=== PATIENT | male | born 1985 | race Caucasian/White ===

== ENCOUNTER 2017-07-24 11:26 | Inpatient (IN) | payer OTHER ==
[2017-07-24 12:09] VITALS: BMI 29.4
--- NOTE | 2017-07-24 16:43 | HP ---
CIWA Score - CIWA Score Nausea/Vomitin-Int. Nausea w/Dry Heave Muscle Tremors: 3 Anxiety: 3 Agitation: 4-Moderately Restless Paroxysmal Sweats: 3 Orientation: 0-Oriented Tacttile Disturbances: 1-Very Mild Itch/Numbness Auditory Disturbances: 0-None Visual Disturbances: 0-None Headache: 1-Very Mild CIWA-Ar Total Score: 19 Admission ROS BHS - HPI Chief Complaint: benzodiazepine withdrawal sx Allergies/Adverse Reactions: Allergies Allergy/AdvReac Type Severity Reaction Status Date / Time SEAFOOD Allergy Severe Hives Uncoded 07/24/17 12:37 NKDA Allergy Uncoded 07/24/17 12:37 History of Present Illness: 32 yo m with h/o opioid use disorder on OTP [place] 170mg daily, ldm today requesting inpatient detoxification from benzodiazepines because of withdrawal sx. no h/o seizures, dts. no other illict drug use reported, nicotien dependnece 1PPD Exam Limitations: No Limitations - Ebola screening Have you traveled outside of the country in the last 21 days: No (N) Have you had contact with anyone from an Ebola affected area: No Have you been sick,other than usual withdrawal symptoms: No Do you have a fever: No - Review of Systems Constitutional: Chills, Diaphoresis, Night Sweats, Changes in sleep, Weakness EENT: reports: No Symptoms Reported Respiratory: reports: No Symptoms reported Cardiac: reports: No Symptoms Reported GI: reports: Diarrhea, Nausea, Poor Fluid Intake, Vomiting, Indigestion, Abdominal cramping : reports: No Symptoms Reported Musculoskeletal: reports: No Symptoms Reported Integumentary: reports: Flushing, Sweating Neuro: reports: Headache, Numbness, Paresthesia, Tremors, Weakness Endocrine: reports: No Symptoms Reported Hematology: reports: No Symptoms Reported Psychiatric: reports: Judgement Intact, Mood/Affect Appropiate, Orientated x3, Anxious, Depressed Other Systems: Reviewed and Negative Patient History - Patient Medical History Hx Anemia: No Hx Asthma: No Hx Chronic Obstructive Pulmonary Disease (COPD): No Hx Cancer: No Hx Cardiac Disorders: No Hx Congestive Heart Failure: No Hx Hypertension: No Hx Hypercholesterolemia: No Hx Pacemaker: No HX Cerebrovascular Accident: No Hx Seizures: No Hx Dementia: No Hx Diabetes: No Hx Gastrointestinal Disorders: No Hx Liver Disease: No Hx Genitourinary Disorders: No Hx Sexually Transmitted Disorders: No Hx Renal Disease (ESRD): No Hx Thyroid Disease: No Hx Human Immunodeficiency Virus (HIV): No Hx Hepatitis C: No Hx Depression: Yes (anxiety, insomnia) Hx Suicide Attempt: No Hx Bipolar Disorder: No Hx Schizophrenia: No - Patient Surgical History Past Surgical History: Yes Hx Neurologic Surgery: No Hx Cataract Extraction: No Hx Cardiac Surgery: No Hx Lung Surgery: No Hx Breast Surgery: Yes (bilateral gynomastia in 2014) Hx Breast Biopsy: No Hx Abdominal Surgery: No Hx Appendectomy: No Hx Cholecystectomy: No Hx Genitourinary Surgery: No Hx Section: Yes (fx, right ankle in 2009) Hx Orthopedic Surgery: No Anesthesia Reaction: No - PPD History Previous Implant?: Yes Documented Results: Negative w/o proof Implanted On Prior R Admission?: No PPD to be Administered?: Yes - Reproductive History Patient is a Female of Child Bearing Age (11 -55 yrs old): No Patient : No - Smoking Cessation Smoking history: Current every day smoker Have you smoked in the past 12 months: Yes Aproximately how many cigarettes per day: 10 Hx Chewing Tobacco Use: No Initiated information on smoking cessation: Yes 'Breaking Loose' booklet given: 07/24/17 - Substance & Tx. History Hx Alcohol Use: No Hx Substance Use: Yes Substance Use Type: Heroin, Opiates, Prescribed, Tranquilizers Hx Substance Use Treatment: Yes (MMTP) - Substances Abused Xanax Route: Oral Frequency: Daily Amount used: 5-10 tabs. (2 mg.) Age of first use: 30 Date of Last Use: 07/23/17 Family Disease History - Family Disease History Family History: Denies Admission Physical Exam [facility] - Vital Signs Vital Signs: Vital Signs - 24 hr 07/24/17 12:04 Temperature 97.6 F Pulse Rate 84 Respiratory 18 Rate Blood Pressure 120/68 - Physical General Appearance: Yes: Nourished, Appropriately Dressed, Disheveled, Mild Distress, Tremorous, Irritable, Sweating, Anxious HEENTM: Yes: Within Normal Limits, EOMI, Hearing grossly Normal, Normal ENT Inspection, Normocephalic, Normal Voice, ALBIN, Pharynx Normal Respiratory: Yes: Within Normal Limits, Chest Non-Tender, Lungs Clear, Normal Breath Sounds, No Respiratory Distress, No Accessory Muscle Use Neck: Yes: Within Normal Limits, No masses,lesions,Nodules, Supple, Trachea in good position Breast: Yes: Breast Exam Deferred Cardiology: Yes: Within Normal Limits, Regular Rhythm, Regular Rate, S1, S2 Abdominal: Yes: Normal Bowel Sounds, Non Tender, Flat, Soft, Increased Bowel Sounds, Tenderness (central no rebound or guarding) Genitourinary: Yes: Within Normal Limits Back: Yes: Within Normal Limits, Normal Inspection Musculoskeletal: Yes: Within Normal Limits, full range of Motion, Gait Steady, Pelvis Stable Extremities: Yes: Normal Capillary Refill, Normal Range of Motion, Non-Tender, Tremors Neurological: Yes: deck lid fitter II-XII NML intact, Fully Oriented, Alert, Motor Strength 5/5, Normal Response Integumentary: Yes: Normal Color, Warm, Diaphoresis, Moist Lymphatic: Yes: Within Normal Limits - Addiitonal Findings: withdrawal sx present - Diagnostic (1) Opioid dependence on agonist therapy Current Visit: Yes Status: Acute (2) Sedative, hypnotic or anxiolytic dependence with withdrawal, uncomplicated Current Visit: Yes Status: Acute (3) Nicotine dependence Current Visit: Yes Status: Acute (4) Dehydration Current Visit: Yes Status: Acute (5) Depression Current Visit: Yes Status: Acute Cleared for Admission [facility] - Detox or Rehab [facility] Level of Care: Medically Managed Detox Regimen/Protocol: Valium [facility] Breath Alcohol Content Breath Alcohol Content: 0 Urine Drug Screen - Results Drug Screen Negative: No Urine Drug Screen Results: BZO-Benzodiazepines, MTD-Methadone, TCA-Tricyclic Antidepress
[2017-07-24] MEDS ORDERED: NICOTINE POLACRILEX 4 MG GUM BUC PRN (16:45)
[2017-07-24] MEDS ORDERED: MENTHOL/PHENOL 1 EACH UD MM PRN (16:45)
[2017-07-24] MEDS ORDERED: P-EPHED 60MG/TRIPROLIDI 2.5MG TABLET PO PRN (16:45)
[2017-07-24] MEDS ORDERED: guaiFENesin/D-METHORPHAN HB 10 ML UNIT-DOSE CUPS PO PRN (16:45)
[2017-07-24] MEDS ORDERED: hydrOXYzine PAMOATE 50 MG CAPSULE (FP) PO PRN (16:45)
[2017-07-24] MEDS ORDERED: MAGNESIUM CITRATE 300 ML BOTTLE PO PRN (16:45)
[2017-07-24] MEDS ORDERED: MAG HYDROX/AL HYDROX/SIMETH 30 ML UNIT-DOSE CUP PO PRN (16:45)
[2017-07-24] MEDS ORDERED: IBUPROFEN 400 MG TABLET (FP) PO PRN (16:45)
[2017-07-24] MEDS ORDERED: LOPERAMIDE HCL 2 MG CAPSULE PO PRN (16:45)
[2017-07-24] MEDS ORDERED: MAGNESIUM HYDROX 2400MG/30ML ORAL SUSPENSION 30 ML CUP PO PRN (16:45)
[2017-07-24] MEDS ORDERED: ONDANSETRON *ODT* 4 MG TABLET SL PRN (16:49)
[2017-07-24] MEDS ORDERED: diazePAM 5 MG TABLET PO ONE (18:15)
[2017-07-24] MEDS ORDERED: ACETAMINOPHEN 325 MG TABLET (FP) PO PRN (18:15)
[2017-07-24] MEDS: PANTOPRAZOLE 40 MG TABLET (FP) PO SCH (18:24)
[2017-07-24] MEDS: NICOTINE 21 MG/24 HOURS TOPICAL PATCH TD SCH (18:24)
[2017-07-24] MEDS ORDERED: ONDANSETRON *ODT* 4 MG TABLET SL ONE (18:30)
[2017-07-24] MEDS: THIAMINE HCL 100 MG TABLET (FP) PO SCH (22:15)
[2017-07-24] MEDS: diazePAM 5 MG TABLET PO SCH (22:15)
[2017-07-25 03:51] LABS: URINE APPEARANCE CLEAR; URINE BILIRUBIN NEGATIVE (NEGATIVE); URINE BLOOD NEGATIVE (NEGATIVE); URINE COLOR LTYELLOW; URINE GLUCOSE (UA) NEGATIVE (NEGATIVE); URINE KETONE NEGATIVE (NEGATIVE); URINE LEUK ESTERASE TRACE (NEGATIVE); URINE NITRITE NEGATIVE (NEGATIVE); URINE PROTEIN NEGATIVE (NEGATIVE); URINE UROBILINOGEN NEGATIVE mg/dL (0.2-1.0)
[2017-07-25 04:23] LABS: EPI CELLS RARE /HPF (FEW); URINE MUCUS RARE
[2017-07-25] MEDS: diazePAM 5 MG TABLET PO SCH ×3 (05:25→22:14)
[2017-07-25] MEDS ORDERED: METHADONE HCL 10 MG TABLET PO SCH (09:15)
[2017-07-25] MEDS ORDERED: METHADONE HCL 10 MG TABLET ONE (09:30)
[2017-07-25] MEDS ORDERED: METHADONE HCL 40 MG DISPERSABLE TABLET ONE (09:31)
[2017-07-25] MEDS: METHADONE 160 MG, METHADONE 10 MG PO SCH (10:03)
[2017-07-25] MEDS: PRENATAL VITAMINS W/ FOLIC ACID TABLET (FP) PO SCH (10:03)
[2017-07-25] MEDS: diazePAM 5 MG TABLET PO PRN ×2 (10:03→20:39)
[2017-07-25] MEDS: NICOTINE 21 MG/24 HOURS TOPICAL PATCH TD SCH (10:03)
[2017-07-25] MEDS: PANTOPRAZOLE 40 MG TABLET (FP) PO SCH (10:03)
[2017-07-25 10:14] LABS: ANION GAP 5 (8-16); BILIRUBIN,TOTAL 0.5 mg/dL (0.2-1.0); BLOOD UREA NITROGEN 10 mg/dL (7-18); CALCIUM 8.7 mg/dL (8.5-10.1); CHLORIDE 105 mmol/L (98-107); CO2 29 mmol/L (21-32); CREATININE 0.9 mg/dL (0.7-1.3); GLUCOSE,RANDOM 72 mg/dL (74-106); POTASSIUM 4.4 mmol/L (3.5-5.1); SGOT/AST 15 U/L (15-37); SGPT/ALT 43 U/L (12-78); SODIUM 139 mmol/L (136-145)
[2017-07-25 10:15] LABS: ALK PHOS 82 U/L (45-117)
[2017-07-25 10:16] LABS: HEMOGLOBIN 13.2 GM/dL (11.7-16.9); MCH 30.6 pg (25.7-33.7); MCHC 32.1 g/dl (32.0-35.9); MEAN CELL VOLUME 95.3 fl (80-96); MEAN PLT VOLUME 9.7 fl (7.5-11.1); PLATELET COUNT 252 K/MM3 (134-434); RDW 13.8 % (11.9-15.9); WHITE BLOOD COUNT 5.4 K/mm3 (4.0-10.0)
--- NOTE | 2017-07-25 11:28 | EKG ---
Test Reason : Blood Pressure : / mmHG Vent. Rate : 063 BPM Atrial Rate : 063 BPM P-R Int : 160 ms QRS Dur : 084 ms QT Int : 426 ms P-R-T Axes : 049 040 032 degrees QTc Int : 435 ms NORMAL SINUS RHYTHM NORMAL ECG NO PREVIOUS ECGS AVAILABLE BASELINE ARTIFACT Confirmed by RAUL SEGUNDO, JUAN ([id number]) on 07/25/2017 11:27:55 AM Referred By: Confirmed By:JUAN CARTER MD
--- NOTE | 2017-07-25 13:27 | CONSULT ---
[facility] Psychiatric Consult - Data Date of interview: 07/25/17 Admission source: [facility] Identifying data: First admission to [facility] for this 32 y/o Caucasan male seeking detox treatment on for opioid and benzodiazepine (xanax) dependence.Patient is single without children,domiciled,unemployed and supported on Public Assistance. Substance Abuse History: Confirmed by patient in this session. See current [facility] report for details : Smoking history: Current every day smoker. Have you smoked in the past 12 months: Yes. Aproximately how many cigarettes per day: 10. Hx Chewing Tobacco Use: No. Initiated information on smoking cessation: Yes. 'Breaking Loose' booklet given: 07/24/17. - Substance & Tx. History. Hx Alcohol Use: No. Hx Substance Use: Yes. Substance Use Type: Heroin, Opiates, Prescribed, Tranquilizers. Hx Substance Use Treatment: Yes ([facility]). - Substances Abused. Xanax. Route: Oral. Frequency: Daily. Amount used: 5- 10 tabs. (2 mg.). Age of first use: 30. Date of Last Use: 07/23/17 Medical History: Patient endorses good general health.Noted report of past history of surgery for gynecomastia (2014) and orthosurgery (fracture of right ankle in 2009). Psychiatric History: Patient denies.Mr Carrington is currently on methadone maintenance (170 mg/day) at the [facility] program.No rhistory of suicide attempts. Physical/Sexual Abuse/Trauma History: No reported history of abuse. Additional Comment: Urine Drug Screen Results: BZO-Benzodiazepines, MTD- Methadone, TCA-Tricyclic Antidepressant.Noted. Mental Status Exam - Mental Status Exam Alert and Oriented to: Time, Place, Person Cognitive Function: Good Patient Appearance: Well Groomed Mood: Hopeful, Euthymic Affect: Appropriate, Normal Range Patient Behavior: Appropriate, Cooperative Speech Pattern: Clear, Appropriate Voice Loudness: Normal Thought Process: Intact, Goal Oriented Thought Disorder: Not Present Hallucinations: Denies Suicidal Ideation: Denies Homicidal Ideation: Denies Insight/Judgement: Poor Sleep: Poorly, Difficulty falling asleep Appetite: Good Muscle strength/Tone: Normal Gait/Station: Normal Psychiatric Findings - Problem List ([place] 1, 2,3) (1) Opioid dependence on agonist therapy Current Visit: Yes Status: Acute (2) Sedative, hypnotic or anxiolytic dependence with withdrawal, uncomplicated Current Visit: Yes Status: Acute (3) Nicotine dependence Current Visit: Yes Status: Acute (4) Insomnia Current Visit: Yes Status: Acute - Initial Treatment Plan Initial Treatment Plan: Psychoeducation and support provided in session.Detoxification into effect.Ambiebn 10 mg po hs prn.Ordered at patient's request.Patient is informed of potential for parasomnias.Agrees with careplan.Observation.
--- NOTE | 2017-07-25 18:37 | PN ---
S CIWA - CIWA Score Nausea/Vomitin Muscle Tremors: 4-Moderate,w/Arms Extend Anxiety: 4-Mod. Anxious/Guarded Agitation: 3 Paroxysmal Sweats: 3 Orientation: 0-Oriented Tacttile Disturbances: 3-Moderate Itch/Numb/Burn Auditory Disturbances: 0-None Visual Disturbances: 0-None Headache: 0-None Present CIWA-Ar Total Score: 20 BHS Progress Note (SOAP) Subjective: Nausea, Stomach Cramping, Sweating, Tremors, Body Aches, Constipation. Objective: PT. A & O X 3, OBSERVED AMBULATING ON UNIT. NO ACUTE DISTRESS. 07/25/17 18:35 Vital Signs Temperature 98.6 F 07/25/17 13:49 Pulse Rate 88 07/25/17 13:49 Respiratory Rate 17 07/25/17 13:49 Blood Pressure 100/74 07/25/17 13:49 O2 Sat by Pulse Oximetry (%) Laboratory Tests 07/24/17 07/24/17 07/25/17 13:00 23:34 06:00 WBC 5.4 D RBC 4.30 Hgb 13.2 Hct 41.0 MCV 95.3 MCH 30.6 MCHC 32.1 RDW 13.8 Plt Count 252 MPV 9.7 Sodium Potassium Chloride Carbon Dioxide Anion Gap BUN Creatinine Creat Clearance w eGFR Random Glucose Calcium Total Bilirubin AST ALT Alkaline Phosphatase Total Protein Albumin Urine Color Ltyellow Urine Appearance Clear Urine pH 5.0 Ur Specific [place] 1.012 Urine Protein Negative Urine Glucose (UA) Negative Urine Ketones Negative Urine Blood Negative Urine Nitrite Negative Urine Bilirubin Negative Urine Urobilinogen Negative Ur Leukocyte Esterase Negative Urine WBC (Auto) 4 Urine RBC (Auto) <1 Ur Epithelial Cells Rare Urine Mucus Rare RPR Titer HIV 1&2 Antibody Screen Negative HIV P24 Antigen Negative 07/25/17 07/25/17 06:00 06:00 WBC RBC Hgb Hct MCV MCH MCHC RDW Plt Count MPV Sodium 139 Potassium 4.4 Chloride 105 Carbon Dioxide 29 Anion Gap 5 L BUN 10 D Creatinine 0.9 Creat Clearance w eGFR > 60 Random Glucose 72 L D Calcium 8.7 Total Bilirubin 0.5 D AST 15 ALT 43 D Alkaline Phosphatase 82 D Total Protein 7.0 Albumin 4.0 Urine Color Urine Appearance Urine pH Ur Specific [place] Urine Protein Urine Glucose (UA) Urine Ketones Urine Blood Urine Nitrite Urine Bilirubin Urine Urobilinogen Ur Leukocyte Esterase Urine WBC (Auto) Urine RBC (Auto) Ur Epithelial Cells Urine Mucus RPR Titer Nonreactive HIV 1&2 Antibody Screen HIV P24 Antigen LABS NOTED. Assessment: 07/25/17 18:36 WITHDRAWAL SYMPTOMS. Plan: CONTINUE DETOX. INCREASE DAILY PO FLUID INTAKE.
[2017-07-25] MEDS: THIAMINE HCL 100 MG TABLET (FP) PO SCH (22:14)
[2017-07-25] MEDS: ZOLPIDEM TARTRATE 5 MG TABLET PO PRN (22:14)
[2017-07-26] MEDS ORDERED: METHADONE HCL 40 MG DISPERSABLE TABLET ONE (04:15)
[2017-07-26] MEDS ORDERED: METHADONE HCL 10 MG TABLET ONE (04:15)
[2017-07-26] MEDS: METHADONE 160 MG, METHADONE 10 MG PO SCH (05:20)
[2017-07-26] MEDS: diazePAM 5 MG TABLET PO PRN ×3 (05:22→17:13)
[2017-07-26] MEDS: NICOTINE 21 MG/24 HOURS TOPICAL PATCH TD SCH (09:13)
[2017-07-26] MEDS: PRENATAL VITAMINS W/ FOLIC ACID TABLET (FP) PO SCH (09:13)
[2017-07-26] MEDS: PANTOPRAZOLE 40 MG TABLET (FP) PO SCH (09:13)
[2017-07-26] MEDS: diazePAM 5 MG TABLET PO SCH ×2 (09:13→22:30)
--- NOTE | 2017-07-26 16:41 | PN ---
[facility] CIWA - CIWA Score Nausea/Vomitin-Mild Nausea/No Vomiting Muscle Tremors: 3 Anxiety: 4-Mod. Anxious/Guarded Agitation: 4-Moderately Restless Paroxysmal Sweats: 2 Orientation: 0-Oriented Tacttile Disturbances: 1-Very Mild Itch/Numbness Auditory Disturbances: 0-None Visual Disturbances: 0-None Headache: 0-None Present CIWA-Ar Total Score: 15 S Progress Note (SOAP) Subjective: Anxious, sweating, interrupted sleep Objective: 07/26/17 16:40 Last Vital Signs Temp Pulse Resp BP Pulse Ox 98.3 F 85 18 113/81 07/26/17 13:38 07/26/17 13:38 07/26/17 13:38 07/26/17 13:38 Laboratory Tests 07/24/17 07/24/17 07/25/17 13:00 23:34 06:00 WBC 5.4 D RBC 4.30 Hgb 13.2 Hct 41.0 MCV 95.3 MCH 30.6 MCHC 32.1 RDW 13.8 Plt Count 252 MPV 9.7 Sodium Potassium Chloride Carbon Dioxide Anion Gap BUN Creatinine Creat Clearance w eGFR Random Glucose Calcium Total Bilirubin AST ALT Alkaline Phosphatase Total Protein Albumin Urine Color Ltyellow Urine Appearance Clear Urine pH 5.0 Ur Specific [place] 1.012 Urine Protein Negative Urine Glucose (UA) Negative Urine Ketones Negative Urine Blood Negative Urine Nitrite Negative Urine Bilirubin Negative Urine Urobilinogen Negative Ur Leukocyte Esterase Negative Urine WBC (Auto) 4 Urine RBC (Auto) <1 Ur Epithelial Cells Rare Urine Mucus Rare RPR Titer HIV 1&2 Antibody Screen Negative HIV P24 Antigen Negative 07/25/17 07/25/17 06:00 06:00 WBC RBC Hgb Hct MCV MCH MCHC RDW Plt Count MPV Sodium 139 Potassium 4.4 Chloride 105 Carbon Dioxide 29 Anion Gap 5 L BUN 10 D Creatinine 0.9 Creat Clearance w eGFR > 60 Random Glucose 72 L D Calcium 8.7 Total Bilirubin 0.5 D AST 15 ALT 43 D Alkaline Phosphatase 82 D Total Protein 7.0 Albumin 4.0 Urine Color Urine Appearance Urine pH Ur Specific [place] Urine Protein Urine Glucose (UA) Urine Ketones Urine Blood Urine Nitrite Urine Bilirubin Urine Urobilinogen Ur Leukocyte Esterase Urine WBC (Auto) Urine RBC (Auto) Ur Epithelial Cells Urine Mucus RPR Titer Nonreactive HIV 1&2 Antibody Screen HIV P24 Antigen Labs noted Assessment: 07/26/17 16:40 Withdrawal symptoms Plan: Continue detox
[2017-07-26] MEDS: ZOLPIDEM TARTRATE 5 MG TABLET PO PRN (22:30)
[2017-07-26] MEDS: THIAMINE HCL 100 MG TABLET (FP) PO SCH (22:30)
[2017-07-27] MEDS ORDERED: METHADONE HCL 10 MG TABLET ONE (04:00)
[2017-07-27] MEDS ORDERED: METHADONE HCL 40 MG DISPERSABLE TABLET ONE (04:01)
[2017-07-27] MEDS: METHADONE 160 MG, METHADONE 10 MG PO SCH (05:42)
[2017-07-27] MEDS: diazePAM 5 MG TABLET PO PRN (05:42)
[2017-07-27] MEDS: PRENATAL VITAMINS W/ FOLIC ACID TABLET (FP) PO SCH (09:05)
[2017-07-27] MEDS: NICOTINE 21 MG/24 HOURS TOPICAL PATCH TD SCH (09:05)
[2017-07-27] MEDS: diazePAM 5 MG TABLET PO SCH ×2 (09:05→22:19)
[2017-07-27] MEDS: PANTOPRAZOLE 40 MG TABLET (FP) PO SCH (09:05)
--- NOTE | 2017-07-27 14:07 | PN ---
BHS Progress Note (SOAP) Subjective: CONSTIPATION-MOM NOT EFFECTIVE, ANXIETY,SWEATS Objective: 07/27/17 14:06 Vital Signs Temperature 97.3 F L 07/27/17 13:45 Pulse Rate 70 07/27/17 13:45 Respiratory Rate 18 07/27/17 13:45 Blood Pressure 113/76 07/27/17 13:45 O2 Sat by Pulse Oximetry (%) Laboratory Last Values WBC 5.4 K/mm3 (4.0-10.0) D 07/25/17 06:00 RBC 4.30 M/mm3 (4.00-5.60) 07/25/17 06:00 Hgb 13.2 GM/dL (11.7-16.9) 07/25/17 06:00 Hct 41.0 % (35.4-49) 07/25/17 06:00 MCV 95.3 fl (80-96) 07/25/17 06:00 MCH 30.6 pg (25.7-33.7) 07/25/17 06:00 MCHC 32.1 g/dl (32.0-35.9) 07/25/17 06:00 RDW 13.8 % (11.9-15.9) 07/25/17 06:00 Plt Count 252 K/MM3 (134-434) 07/25/17 06:00 MPV 9.7 fl (7.5-11.1) 07/25/17 06:00 Sodium 139 mmol/L (136-145) 07/25/17 06:00 Potassium 4.4 mmol/L (3.5-5.1) 07/25/17 06:00 Chloride 105 mmol/L (98-107) 07/25/17 06:00 Carbon Dioxide 29 mmol/L (21-32) 07/25/17 06:00 Anion Gap 5 (8-16) L 07/25/17 06:00 BUN 10 mg/dL (7-18) D 07/25/17 06:00 Creatinine 0.9 mg/dL (0.7-1.3) 07/25/17 06:00 Creat Clearance w eGFR > 60 (>60) 07/25/17 06:00 Random Glucose 72 mg/dL (74-106) L D 07/25/17 06:00 Calcium 8.7 mg/dL (8.5-10.1) 07/25/17 06:00 Total Bilirubin 0.5 mg/dL (0.2-1.0) D 07/25/17 06:00 AST 15 U/L (15-37) 07/25/17 06:00 ALT 43 U/L (12-78) D 07/25/17 06:00 Alkaline Phosphatase 82 U/L (45-117) D 07/25/17 06:00 Total Protein 7.0 g/dl (6.4-8.2) 07/25/17 06:00 Albumin 4.0 g/dl (3.4-5.0) 07/25/17 06:00 Urine Color Ltyellow 07/24/17 23:34 Urine Appearance Clear 07/24/17 23:34 Urine pH 5.0 (5.0-8.0) 07/24/17 23:34 Ur Specific [place] 1.012 (1.001-1.035) 07/24/17 23:34 Urine Protein Negative (NEGATIVE) 07/24/17 23:34 Urine Glucose (UA) Negative (NEGATIVE) 07/24/17 23:34 Urine Ketones Negative (NEGATIVE) 07/24/17 23:34 Urine Blood Negative (NEGATIVE) 07/24/17 23:34 Urine Nitrite Negative (NEGATIVE) 07/24/17 23:34 Urine Bilirubin Negative (NEGATIVE) 07/24/17 23:34 Urine Urobilinogen Negative mg/dL (0.2-1.0) 07/24/17 23:34 Ur Leukocyte Esterase Negative (NEGATIVE) 07/24/17 23:34 Urine WBC (Auto) 4 /hpf (3-5) 07/24/17 23:34 Urine RBC (Auto) <1 /hpf (0-3) 07/24/17 23:34 Ur Epithelial Cells Rare /HPF (FEW) 07/24/17 23:34 Urine Mucus Rare 07/24/17 23:34 RPR Titer Nonreactive (NONREACTIVE) 07/25/17 06:00 HIV 1&2 Antibody Screen Negative 07/24/17 13:00 HIV P24 Antigen Negative 07/24/17 13:00 Assessment: 07/27/17 16:30 WITHDRAWAL SX CONSTIPATION Plan: CONTINUE DETOX INCREASE PO FLUIDS CIT[place] OF MG DIRECTED
[2017-07-27] MEDS: THIAMINE HCL 100 MG TABLET (FP) PO SCH (22:18)
[2017-07-27] MEDS: ZOLPIDEM TARTRATE 5 MG TABLET PO PRN (22:18)
[2017-07-28] MEDS ORDERED: METHADONE HCL 10 MG TABLET ONE (04:16)
[2017-07-28] MEDS ORDERED: METHADONE HCL 40 MG DISPERSABLE TABLET ONE (04:17)
[2017-07-28] MEDS: METHADONE 160 MG, METHADONE 10 MG PO SCH (05:42)
[2017-07-28 05:55] VITALS: BP 121/82; PULSE 76; TEMP 97.4
[2017-07-28] MEDS: PRENATAL VITAMINS W/ FOLIC ACID TABLET (FP) PO SCH (09:18)
[2017-07-28] MEDS ORDERED: diazePAM 5 MG TABLET PO SCH (10:00)
--- NOTE | 2017-07-28 11:55 | DS ---
[facility] Detox Discharge Summary Admission Date: 07/24/17 Discharge Date: 07/28/17 - History Present History: Sedative Dependence, MMTP Additional Comments: DETOX COMPLETED. ALERT O X 3. NAD. FOLLOW UP WITH REHAB REFERRAL DIRECTED. Pertinent Past History: GERD - Physical Exam Results Vital Signs: Vital Signs Temperature 97.4 F L 07/28/17 05:54 Pulse Rate 76 07/28/17 05:54 Respiratory Rate 18 07/28/17 05:54 Blood Pressure 121/82 07/28/17 05:54 O2 Sat by Pulse Oximetry (%) Pertinent Admission Physical Exam Findings: WITHDRAWAL SX Laboratory Last Values WBC 5.4 K/mm3 (4.0-10.0) D 07/25/17 06:00 RBC 4.30 M/mm3 (4.00-5.60) 07/25/17 06:00 Hgb 13.2 GM/dL (11.7-16.9) 07/25/17 06:00 Hct 41.0 % (35.4-49) 07/25/17 06:00 MCV 95.3 fl (80-96) 07/25/17 06:00 MCH 30.6 pg (25.7-33.7) 07/25/17 06:00 MCHC 32.1 g/dl (32.0-35.9) 07/25/17 06:00 RDW 13.8 % (11.9-15.9) 07/25/17 06:00 Plt Count 252 K/MM3 (134-434) 07/25/17 06:00 MPV 9.7 fl (7.5-11.1) 07/25/17 06:00 Sodium 139 mmol/L (136-145) 07/25/17 06:00 Potassium 4.4 mmol/L (3.5-5.1) 07/25/17 06:00 Chloride 105 mmol/L (98-107) 07/25/17 06:00 Carbon Dioxide 29 mmol/L (21-32) 07/25/17 06:00 Anion Gap 5 (8-16) L 07/25/17 06:00 BUN 10 mg/dL (7-18) D 07/25/17 06:00 Creatinine 0.9 mg/dL (0.7-1.3) 07/25/17 06:00 Creat Clearance w eGFR > 60 (>60) 07/25/17 06:00 Random Glucose 72 mg/dL (74-106) L D 07/25/17 06:00 Calcium 8.7 mg/dL (8.5-10.1) 07/25/17 06:00 Total Bilirubin 0.5 mg/dL (0.2-1.0) D 07/25/17 06:00 AST 15 U/L (15-37) 07/25/17 06:00 ALT 43 U/L (12-78) D 07/25/17 06:00 Alkaline Phosphatase 82 U/L (45-117) D 07/25/17 06:00 Total Protein 7.0 g/dl (6.4-8.2) 07/25/17 06:00 Albumin 4.0 g/dl (3.4-5.0) 07/25/17 06:00 Urine Color Ltyellow 07/24/17 23:34 Urine Appearance Clear 07/24/17 23:34 Urine pH 5.0 (5.0-8.0) 07/24/17 23:34 Ur Specific [place] 1.012 (1.001-1.035) 07/24/17 23:34 Urine Protein Negative (NEGATIVE) 07/24/17 23:34 Urine Glucose (UA) Negative (NEGATIVE) 07/24/17 23:34 Urine Ketones Negative (NEGATIVE) 07/24/17 23:34 Urine Blood Negative (NEGATIVE) 07/24/17 23:34 Urine Nitrite Negative (NEGATIVE) 07/24/17 23:34 Urine Bilirubin Negative (NEGATIVE) 07/24/17 23:34 Urine Urobilinogen Negative mg/dL (0.2-1.0) 07/24/17 23:34 Ur Leukocyte Esterase Negative (NEGATIVE) 07/24/17 23:34 Urine WBC (Auto) 4 /hpf (3-5) 07/24/17 23:34 Urine RBC (Auto) <1 /hpf (0-3) 07/24/17 23:34 Ur Epithelial Cells Rare /HPF (FEW) 07/24/17 23:34 Urine Mucus Rare 07/24/17 23:34 RPR Titer Nonreactive (NONREACTIVE) 07/25/17 06:00 HIV 1&2 Antibody Screen Negative 07/24/17 13:00 HIV P24 Antigen Negative 07/24/17 13:00 - Treatment Hospital Course: Detox Protocol Followed, Detoxed Safely, Responded well, Discharged Condition Good - Medication Discharge Medications: Ambulatory Orders NK [No Known Home Medication] 07/24/17 - Diagnosis (1) Dehydration Status: Acute (2) Opioid dependence on agonist therapy Status: Chronic (3) Sedative, hypnotic or anxiolytic dependence with withdrawal, uncomplicated Status: Acute (4) GERD (gastroesophageal reflux disease) Status: Chronic Qualifiers: Esophagitis presence: esophagitis presence not specified Qualified Code(s) : K21.9 - Gastro-esophageal reflux disease without esophagitis (5) Nicotine dependence Status: Acute Qualifiers: Nicotine product type: cigarettes Substance use status: in withdrawal Qualified Code(s): F17.213 - Nicotine dependence, cigarettes, with withdrawal - AMA Did Patient Leave Against Medical Advice: No
== END 2017-07-28 10:00 | disposition home or self-care (01) | DRG 773 ==
LOC: YASAS 11:26 → Y3N 13:59
PROVIDERS: ADMIT Internal Medicine; ATTEND Internal Medicine
PROC: HZ2ZZZZ Detoxification Services for Substance Abuse Treatment (ICD-10-PCS; principal; 2017-07-24)
DX: F13.230 Sedative, hypnotic or anxiolytic dependence with withdrawal, uncomplicated (principal); F11.20 Opioid dependence, uncomplicated; F17.213 Nicotine dependence, cigarettes, with withdrawal; F41.9 Anxiety disorder, unspecified; F32.9 Major depressive disorder, single episode, unspecified; E86.0 Dehydration; K21.9 Gastro-esophageal reflux disease without esophagitis; G47.00 Insomnia, unspecified; Z91.013 Allergy to seafood
CPT/HCPCS: 36415; 80053; 81003; 81015; 85027; 86593; 87389; 93005; 93010